=== PATIENT | female | born 1955 | race Caucasian/White ===

== ENCOUNTER 2020-01-22 18:40 | Emergency (ER) | payer OTHER, SELFPAY ==
--- NOTE | ~2020-01-22 | CT_ITS ---
EXAMINATION: CT chest abdomen pelvis w con DATE: 01/22/2020 20:58 INDICATION: Left upper abdominal pain post fall TECHNIQUE: Computed tomography (CT) of the chest, abdomen, and pelvis was performed with 100 mL Omnip aque-350 intravenous contrast. Automated exposure control and iterative reconstruction technique were employed. The dose-length product was 1966.01 mGy-cm. COMPARISON: None FINDINGS: CHEST CT: Non to minimally displaced fractures at the anterior left third-eighth ribs. Mild discoid atelectasis in the bilateral lower lobes. No pneumonia, pulmonary edema, pleural effusion or pneumothorax. Heart size is normal. Atherosclerotic coronary artery calcifications. No pericardial effusion. Thoracic ao rta is normal in caliber with no dissection or acute traumatic aortic injury. Calcified left hilar ly mph nodes consistent with old granulomatous disease. Mild thoracic dextrocurvature with severe spondy losis. Moderate left and severe right glenohumeral osteoarthritis. Intramedullary sclerotic lesion at the proximal left humeral diaphysis which could represent an enchondroma or bone infarct. ABDOMEN/PELVIS CT: Liver, gallbladder, pancreas, bilateral adrenal glands and kidneys are normal. Couple small splenic c alcification consistent with old granulomatous disease. Suture line along the tip of the cecum likely related to prior appendectomy. Bowels are otherwise unremarkable with no wall thickening or obstruct ion. Bladder, anteverted uterus and bilateral adnexa are unremarkable. No free intraperitoneal gas or fluid. No pathologically enlarged abdominal or pelvic lymphadenopathy. Couple small fat-containing i nfraumbilical ventral hernias. Severe lower lumbar facet osteoarthritis with grade 1 anterolisthesis L4 on L5. IMPRESSION: 1. Non to minimally displaced anterior left third-eighth rib fractures. No pneumothorax or other acut e cardiopulmonary disease. 2. No acute intra-abdominal/pelvic process. Reviewed, dictated and finalized at location A. IMPRESSION: 1. Non to minimally displaced anterior left third-eighth rib fractures. No pneu mothorax or other acute cardiopulmonary disease. 2. No acute intra-abdominal/pelvic process.
--- NOTE | ~2020-01-22 | XR_ITS ---
EXAMINATION: [id number] DATE: 01/22/2020 19:12 INDICATION: Anterior mid to lower left rib pain post fall TECHNIQUE: A frontal inspiratory view of the chest and 3 views of the left ribs were obtained. COMPARISON: Chest radiograph dated 01/14/2018 FINDINGS: Multiple anterior rib fractures, minimally displaced at the left third and fourth ribs and nondisplac ed at the left fifth and sixth ribs. No focal airspace opacities, pulmonary edema, pleural effusion o r pneumothorax. Heart size is normal with prominent bilateral paracardial fat pads. Mild thoracic dex troscoliosis with severe spondylosis. Sclerotic intramedullary lesion at the proximal left humeral di aphysis which could represent either an enchondroma or bone infarct. Moderate bilateral glenohumeral osteoarthritis. IMPRESSION: 1. Non to minimally displaced anterior left third-sixth rib fractures. 2. No acute cardiopulmonary disease. Reviewed, dictated and finalized at location A.
[2020-01-22 18:40] VITALS: BP 148/91; PULSE 73; RESP 20; TEMP 37.1; O2SAT 98
--- NOTE | 2020-01-22 18:55 | ED.GENADULT ---
HPI - General Adult General Chief complaint: Fall Stated complaint: FALL, Time Seen by Provider: 01/22/20 18:42 History of Present Illness HPI narrative: Patient is a 64 y/o female complaining of left sided chest pain and upper abdominal pain after she fell at home approximately 30 minute ago. She states that she struck tile floor covered with a thin rug. She denies hitting her head or passing out. She rates her pain as 9/10 and it radiates to her back. Her pain is a like a pressure. There is no alleviating or exacerbating factor. She also has some SOB. Related Data Home Medications Medication Instructions Recorded Confirmed acidophilus-pectin, citrus cap PO 01/22/20 [Acidophilus Probiotic] atorvastatin 10 mg PO HS 01/22/20 biotin 10,000 mcg PO DAILY 01/22/20 cholecalciferol (vitamin D3) 125 mcg PO DAILY 01/22/20 01/22/20 [Vitamin D3] diclofenac sodium 75 mg PO BID 01/22/20 fluoxetine 20 mg PO DAILY 01/22/20 furosemide 20 mg PO BID 01/22/20 losartan 50 mg PO DAILY 01/22/20 oxybutynin chloride 5 mg PO TID 01/22/20 oxycodone 7.5 mg PO BID 01/22/20 potassium chloride 10 meq PO DAILY 01/22/20 Allergies Allergy/AdvReac Type Severity Reaction Status Date / Time No Known Allergies Allergy Verified 01/22/20 18:48 Review of Systems Constitutional: Constitutional: Denies chills, Denies fever(s), Denies headache(s) and Denies weakness Eyes: Eyes: Denies blurry vision ENT: Denies headache(s) and Denies neck pain Cardiovascular: Cardiovascular: Reports chest pain and Denies dyspnea Respiratory: Respiratory: Denies cough, Reports dyspnea and Reports other (chest wall pain) Gastrointestinal: Gastrointestinal: Denies abdominal pain, Denies diarrhea, Denies nausea and Denies vomiting Genitourinary: Genitourinary: Denies hematuria and Denies dysuria Musculoskeletal: Musculoskeletal: Denies back pain and Denies neck pain Neurologic: Denies headache(s) and Denies weakness [facility] Past Medical History Medical History (Updated 01/24/20 @ 16:58 by Lalitha Grace MD) COPD (chronic obstructive pulmonary disease) Social History Social History Alcohol intake: current Exam Const: General: no acute distress and well developed Orientation/consciousness: oriented to person, oriented to place, oriented to time and patient oriented x3 HENMT: Head: normocephalic Ears: external ears normal General nose exam: Normal external nose present Eyes: General: appearance normal, both eyes and all related structures Conjunctivae: conjunctivae normal Neck: Neck: normal visual inspection and full ROM Chest: Chest palpation & inspection: normal inspection of the chest and no tenderness Resp: Effort & Inspection: normal respiratory effort Auscultation: clear to auscultation bilaterally Other: left chest wall palpation Cardio: Rate: regular rate Rhythm: regular rhythm GI: GI Palp: Yes abdominal tenderness (left upper quadrant) and Yes Soft to palpation Skin: General skin exam: normal color and turgor normal Neuro: General: oriented to person, oriented to place, oriented to time and patient oriented x3 Cognition (Neuro): normal cognition Extrem: General: normal to inspection, full ROM and no pedal edema Psych: Appearance: grossly normal Mental Status: mental status grossly normal Affect: normal affect Course Reevaluation(s) Reevaluation #1: Rechecked. Patient feels better and feels comfortable with going home. She states that she has oxycondone at home she can take. Date: 01/22/20 Time: 21:40 Vital Signs Vital signs: Vital Signs Temperature 37.1 C 01/22/20 18:40 Pulse Rate 73 01/22/20 18:40 Respiratory Rate 20 01/22/20 18:40 Blood Pressure 148/91 H 01/22/20 18:40 Pulse Oximetry 98 01/22/20 18:40 Temperature 36.9 C 01/22/20 21:55 Pulse Rate 78 01/22/20 21:55 Respiratory Rate 16 01/22/20 21:55 Blood Pressure 148/78 H 01/21
--- NOTE | 2020-01-22 19:02 | ECG_ITS ---
Measurements Intervals [place] Rate: 77 P: 0 IA: 134 QRS: 2 QRSD: 78 T: 30 QT: 365 QTc: 414 Interpretive Statements SINUS RHYTHM LOW QRS VOLTAGE IN PRECORDIAL LEADS BORDERLINE R WAVE PROGRESSION, ANTERIOR LEADS BASELINE ARTIFACT- I, II, III, AVF, V1 BORDERLINE ECG Electronically Signed On 01-23-2020 6:55:11 CDT by Baltazar Bernal D.O.
[2020-01-22 19:28] LABS: Basophils Absolute Auto 0.1 K/mm3 (0.0-0.1); Basophils Percent Auto 0.5 % (0.2-1.2); Eosinophils Absolute Auto 0.2 K/mm3 (0-0.3); Eosinophils Percent Auto 1.5 % (0-4.4); Hematocrit 45.1 % (37.0-47.0); Hemoglobin 14.7 g/dL (12.0-15.0); Immature Granulocyte Percent A 0.8 % (0-0.5); Lymphocytes Absolute Auto 2.19 K/mm3 (0.9-3.2); Lymphocytes Percent Auto 17.2 % (18.3-44.2); Mean Corpuscular HGB Conc 32.6 g/dl (32-36); Mean Corpuscular Hemoglobin 30.8 pg (26-34); Mean Corpuscular Volume 94.4 fl (80-100); Mean Platelet Volume 10.8 fl (7.4-10.4); Monocytes Absolute Auto 0.9 K/mm3 (0.1-0.6); Neutrophils Absolute Auto 9.3 K/mm3 (1.3-6.7); Platelet Count Result 279 k/mm3 (150-375); Red Blood Count 4.78 M/mm3 (4.2-5.4); White Blood Count 12.8 K/mm3 (4.5-10.0)
[2020-01-22 19:39] LABS: Alanine Aminotransferase 21 U/L (4-35); Albumin Level 4.4 g/dL (3.5-5.1); Alkaline Phosphatase 80 U/L (38-126); Aspartate Amino Transferase 27 U/L (14-36); Bilirubin,Total 0.4 mg/dL (0.2-1.3); Blood Urea Nitrogen 15 mg/dL (7-17); Calcium 9.6 mg/dL (8.4-10.2); Carbon Dioxide 26 mmol/L (22-30); Chloride 102 mmol/L (98-107); Estimated CRCL calculation 99 ml/min; Estimated Glomerular Filt Rate > 60; Glucose 112 mg/dL (65-105); Potassium 4.4 mmol/L (3.4-5.0); Sodium 138 mmol/L (137-145)
[2020-01-22 20:09] LABS: Add Urine Microscopic? YES; Appearance Urine Clear (Clear); Bilirubin Urine Negative (Negative); Blood Urine Negative (Negative); Color Urine Yellow (Yellow); Glucose Urine UA Negative (Negative); Ketones Urine Negative (Negative); Leukocyte Esterase Ur 1+ LEU/UL (Negative); Mucus Urine Rare /lpf; Nitrate Urine Negative (Negative); Protein Urine Negative (Negative); Specific Grav Ur 1.016 (1.001-1.035); Squamous Epithelial Cell Urine Occasional /hpf (Few); Urobilinogen Urine Negative mg/dL (<2.0)
[2020-01-22] MEDS: KETOROLAC 30 MG/ML VIAL (*BKC) IV PUSH (20:09)
[2020-01-22 20:11] VITALS: BP 163/99; PULSE 74; RESP 16; TEMP 36.6; O2SAT 97
[2020-01-22 21:04] VITALS: BP 178/79; PULSE 88; RESP 19; O2SAT 99
[2020-01-22 21:55] VITALS: BP 148/78; PULSE 78; RESP 16; TEMP 36.9; O2SAT 94
[2020-01-22] MEDS: MORPHINE SULFATE 4 MG/ML INJ IV PUSH (22:00)
== END 2020-01-22 22:12 | disposition home or self-care (01) ==
PROVIDERS: Emergency Provider Emergency Medicine; PCP Family Medicine Adolescent Medicine
DX: S22.42XA Multiple fractures of ribs, left side, initial encounter for closed fracture (principal); J44.9 Chronic obstructive pulmonary disease, unspecified; R94.31 Abnormal electrocardiogram [ECG] [EKG]; R82.998 Other abnormal findings in urine; W01.0XXA Fall on same level from slipping, tripping and stumbling without subsequent striking against object, initial encounter
CPT/HCPCS: 36415; 71101; 71260; 74177; 80053; 81001; 85025; 87086; 87088; 93005; 96374; 96375; 99284; J1885; J2270; Q9967

== ENCOUNTER 2020-03-11 19:44 | Inpatient (IN) | payer OTHER, SELFPAY ==
[2020-03-11] VITALS (7 sets, daily range): BP systolic 137–147; BP diastolic 71–97; PULSE 93–107; RESP 17–24; TEMP 38.3–38.7; O2SAT 81–96; BMI 56.5
--- NOTE | ~2020-03-11 | XR_ITS ---
EXAMINATION: XR chest 1V portable EXAM DATE: 03/11/2020 20:25 INDICATION: COVID 19. TECHNIQUE: Portable AP frontal chest x-ray was obtained. Comparison is made to prior examination from 01/14/2018. FINDINGS: There is moderate amount of bilateral ill-defined airspace disease consistent with acute geri ng injury, COVID 19. No pneumothorax or pleural effusion. The cardiomediastinal silhouette is promine nt but magnified on this AP technique. Cardiac silhouette is stable in size compared to prior exam. T here are no osseous abnormalities identified. IMPRESSION: Moderate amount of bilateral acute airspace disease; clinical correlation. Reviewed, dictated and finalized at location A. IMPRESSION: Moderate amount of bilateral acute airspace disease; clinical corre lation.
--- NOTE | ~2020-03-11 | XR_ITS ---
XR chest 1V portable DATE: 03/15/2020 06:28 INDICATION: Covid 19 pneumonia TECHNIQUE: Portable upright AP chest on 03/15/2020 at 0519 hours COMPARISON: 03/11/2020 portable AP chest FINDINGS: There are persistent extensive bilateral patchy consolidating infiltrates with increased in filtrates in both upper lung zones compared to 03/11/2020. Heart size appears normal. There is minimal if any pleural effusion. No pneumothorax. IMPRESSION: Extensive bilateral pulmonary infiltrates, increased since 03/11/2020 Reviewed, dictated and finalized at location A.
--- NOTE | ~2020-03-11 | XR_ITS ---
EXAMINATION: XR chest 1V portable DATE: 03/17/2020 08:05 INDICATION: COVID 19 pneumonia TECHNIQUE: frontal view of the chest was obtained. COMPARISON: Chest radiograph dated 03/15/2020 FINDINGS: No interval change in diffuse patchy airspace opacities throughout both lungs. No pleural effusion or pneumothorax. The cardiomediastinal silhouette is normal. IMPRESSION: 1. Unchanged diffuse bilateral lung disease consistent with pneumonia. Reviewed, dictated and finalized at location A.
--- NOTE | 2020-03-11 19:59 | ECG_ITS ---
Measurements Intervals [place] Rate: 103 P: -13 FL: 148 QRS: -15 QRSD: 70 T: 37 QT: 309 QTc: 406 Interpretive Statements SINUS TACHYCARDIA LOW QRS VOLTAGE IN PRECORDIAL LEADS DELAYED PRECORDIAL R/S TRANSITION BASELINE ARTIFACT- I, II, III, AVR, AVL, AVF, V1 ABNORMAL ECG Electronically Signed On 03-12-2020 6:46:39 CDT by Baltazar Bernal D.O.
--- NOTE | 2020-03-11 20:11 | ED.SOB ---
HPI - SOB/Dyspnea General Chief Complaint: Shortness of Breath/Dyspnea Stated Complaint: covid +/can't breathe Time Seen by Provider: 03/11/20 20:01 History of Present Illness HPI Narrative: Patient is a known COVID patient presenting with increasing shortness of breath. She has had a fever of 102 203 for 4 days now. She can no longer taste. Her only pain is her chronic knee pain. She has a history of asthma. She is retired. All of her surgeries have been here. MD elicited complaint: shortness of breath and cough Pertinent past history: asthma Onset (ago): day(s) Context: recent illness Timing: constant Severity: moderate Exacerbating factors: nothing Relieving factors: nothing Known history of: asthma Associated symptoms: fever, cough and lower extremity pain Treatment prior to arrival: none Related Data Home oxygen amount: none Home Medications Medication Instructions Recorded Confirmed acidophilus-pectin, citrus cap PO 01/22/20 [Acidophilus Probiotic] atorvastatin 10 mg PO HS 01/22/20 biotin 10,000 mcg PO DAILY 01/22/20 cholecalciferol (vitamin D3) 125 mcg PO DAILY 01/22/20 01/22/20 [Vitamin D3] diclofenac sodium 75 mg PO BID 01/22/20 fluoxetine 20 mg PO DAILY 01/22/20 furosemide 20 mg PO BID 01/22/20 losartan 50 mg PO DAILY 01/22/20 oxybutynin chloride 5 mg PO TID 01/22/20 oxycodone 7.5 mg PO BID 01/22/20 potassium chloride 10 meq PO DAILY 01/22/20 albuterol sulfate INHALATION 03/11/20 alprazolam 0.25 mg PO BID PRN 03/11/20 [id number] INHALATION 03/11/20 [Trelegy Ellipta] Allergies Allergy/AdvReac Type Severity Reaction Status Date / Time No Known Allergies Allergy Verified 03/11/20 20:28 Review of Systems Review of Systems: Narrative: CONSTITUTIONAL: She has fever, chills, and sweats. EYES: Denies visual changes, redness, or discharge. ENT: Denies rhinorrhea, congestion, sore throat, or otalgia. CARDIOVASCULAR: Denies chest pain, palpitations, or edema. RESPIRATORY: She has cough and dyspnea. GASTROINTESTINAL: Denies abdominal pain, nausea, vomiting, or diarrhea. GENITOURINARY: Denies dysuria or hematuria. SKIN: Denies rash or itching. MUSCULOSKELETAL: Denies back pain, joint pain, or myalgia. NEUROLOGIC: Denies headache, numbness, or weakness. PSYCHIATRIC: Denies anxiety or depression. All systems reviewed & are unremarkable except as noted in HPI and below PMFSH Past Medical History Medical History (Updated 03/11/20 @ 21:13 by Mary Hayden MD) COPD (chronic obstructive pulmonary disease) COVID-19 Morbid obesity Social History Social History (Updated 03/11/20 @ 20:14 by Mary Hayden MD) Smoking status: Never smoker Alcohol intake: current Substance use: never Exam Narrative: Exam Narrative: GENERAL: Well-appearing, well-nourished, and in no acute distress. Morbid obesity. Oxygen saturation 93% on 5 L. HEAD: Normocephalic, atraumatic. EYES: PERRLA and EOMI. ENT: Nares clear, no rhinorrhea or epistaxis. Mucous membranes moist. NECK: Supple. CHEST: Clear to auscultation. No respiratory distress. HEART: Regular rate and rhythm. No murmur heard. Normal peripheral pulses. ABDOMEN: Soft, nontender, nondistended, normal active bowel sounds. EXTREMITIES: Normal range of motion. No edema. SKIN: Warm, dry, no rash. NEURO: No focal deficits. Alert and oriented x3. PSYCH: Normal mood and affect. Const: General: no acute distress and alert Orientation/consciousness: patient oriented x3 Course Consultations Consultation #1: Call Dr. Toure for admission. She requests dexamethasone 6 mg IV, regular antibiotics for pneumonia, inpatient admission, on [facility] floor. Date: 03/11/20 Time: 20:47 Vital Signs Vital signs: Vital Signs Temperature 100.9 F H 03/11/20 19:55 Pulse Rate 107 H 03/11/20 19:55 Respiratory Rate 24 H 03/11/20 19:55 Blood Pressure 137/85 03/11/20 19:55 Pulse Oximetry 81 L 03/11/20 19:55 Temperature 10
[2020-03-11 20:24] LABS: Basophils Percent Auto 0.3 % (0.2-1.2); Eosinophils Absolute Auto 0.2 K/mm3 (0-0.3); Eosinophils Percent Auto 3.2 % (0-4.4); Hematocrit 44.8 % (37.0-47.0); Hemoglobin 14.5 g/dL (12.0-15.0); Immature Granulocyte Absolute 0.05 K/mm3 (0.00-0.031); Immature Granulocyte Percent A 0.8 % (0-0.5); Lymphocytes Absolute Auto 0.99 K/mm3 (0.9-3.2); Lymphocytes Percent Auto 15.8 % (18.3-44.2); Mean Corpuscular HGB Conc 32.4 g/dl (32-36); Mean Corpuscular Hemoglobin 30.1 pg (26-34); Mean Corpuscular Volume 92.9 fl (80-100); Monocytes Absolute Auto 0.4 K/mm3 (0.1-0.6); Monocytes Percent Auto 5.8 % (2.6-8.5); Neutrophils Absolute Auto 4.6 K/mm3 (1.3-6.7); Neutrophils Percent Auto 74.1 % (45.5-73.1); Platelet Count Result 183 k/mm3 (150-375); Red Blood Count 4.82 M/mm3 (4.2-5.4); Red Cell Distribution Width 13.7 % (11.5-14.5); White Blood Count 6.3 K/mm3 (4.5-10.0)
[2020-03-11] MEDS: ACETAMINOPHEN 325 MG TABLET 650 MG PO (20:24)
--- NOTE | 2020-03-11 20:25 | PC.NURSE ---
per erp dr reynoso, no longer requires aspirin
[2020-03-11 20:36] LABS: Blood Urea Nitrogen 10 mg/dL (7-17); Calcium 8.3 mg/dL (8.4-10.2); Carbon Dioxide 30 mmol/L (22-30); Chloride 101 mmol/L (98-107); Estimated CRCL calculation 113 ml/min; Estimated Glomerular Filt Rate > 60; Glucose 98 mg/dL (65-105); Sodium 137 mmol/L (137-145)
[2020-03-11 20:48] LABS: Troponin I < 0.012 ng/mL (0.000-0.034)
[2020-03-11 20:51] LABS: Partial Thromboplastin Time 30.8 SECONDS (22.3-36.8)
[2020-03-11 20:55] LABS: Prothrombin Time 12.8 Seconds (11.1-14.7)
[2020-03-11 21:02] LABS: NT Pro B Type Natriuretic Pept 81 PG/ML (5-100)
[2020-03-11 21:44] LABS: Lactic Acid 0.8 mmol/L (0.7-2.1)
[2020-03-11] MEDS: ONDANSETRON INJ 4 MG/2 ML VIAL IV PUSH (22:00)
--- NOTE | 2020-03-11 22:00 | PC.NURSE ---
PER ERP DR WOMACK, ZOFRAN 4MG IV PUSH... SEVERE WARNING BETWEEN ZOFRAN AND AZITHROMYCIN OK TO GIVE .
--- NOTE | 2020-03-11 23:30 | ADMGEN ---
This patient, Alissa Hoffmann, was admitted to [facility] Surg Room 328-01. Patient/family oriented to hospital policies and general routines including ID bracelet, bed and alarms, visiting hours, pain management, procedures, bathroom and other care routines, personal items, smoking policy, room service/diet, and visiting hours. Valuables list has been completed. Information on how to activate the Rapid Response Team has been discussed. Patient/Family are encouraged to report perceived risks to care and to ask questions if they do not understand what they are told or what they should do.
[2020-03-12] VITALS (11 sets, daily range): BP systolic 119–145; BP diastolic 54–97; PULSE 76–87; RESP 18–24; TEMP 36.7–37.6; O2SAT 88–94
[2020-03-12 01:08] LABS: Troponin I < 0.012 ng/mL (0.000-0.034)
[2020-03-12 03:11] LABS: Troponin I < 0.012 ng/mL (0.000-0.034)
[2020-03-12 09:46] LABS: CRP 5.5 mg/dL (<1.0); Lactate Dehydrogenase 851 U/L (313-618)
[2020-03-12] MEDS: LOSARTAN POTASSIUM 50 MG TABLET PO (10:37)
[2020-03-12] MEDS: POTASSIUM CHLORIDE 10 MEQ TABLET.ER PO (10:37)
[2020-03-12] MEDS: OXYBUTYNIN CHLORIDE 5 MG TABLET PO ×3 (10:37→20:33)
[2020-03-12] MEDS: FUROSEMIDE 20 MG TABLET PO (10:37)
[2020-03-12] MEDS: FLUoxetine HCL 20 MG CAPSULE PO (10:37)
[2020-03-12] MEDS: DICLOFENAC SOD 75 MG TABLET.EC PO ×2 (10:38→17:48)
--- NOTE | 2020-03-12 15:31 | PM.DS ---
DS: Summary Time Spent with Patient Time attestation: Total time spent providing and/or coordinating discharge services: DS: Data Data Completed and Pending Labs on day of discharge: Labs from last 24 hours 03/12/20 03/12/20 03/12/20 09:18 09:18 02:06 WBC RBC Hgb Hct MCV MCH MCHC RDW Plt Count MPV Immature Gran % (Auto) Neut % (Auto) Lymph % (Auto) Page % (Auto) Eos % (Auto) Baso % (Auto) Lymph # (Auto) Page # (Auto) Eos # (Auto) Baso # (Auto) Abs Immat Gran (auto) Absolute Neuts (auto) Absolute Nucleated RBC Nucleated RBC % PT INR APTT Sodium Potassium Chloride Carbon Dioxide Anion Gap BUN Creatinine Estim Creat Clear Calc Estimated GFR Glucose Lactic Acid Calcium Ferritin 156.00 Lactate Dehydrogenase 851 H Troponin I < 0.012 C-Reactive Protein 5.5 H NT-Pro-B Natriuret Pep 03/12/20 03/11/20 03/11/20 00:32 21:26 20:36 WBC RBC Hgb Hct MCV MCH MCHC RDW Plt Count MPV Immature Gran % (Auto) Neut % (Auto) Lymph % (Auto) Page % (Auto) Eos % (Auto) Baso % (Auto) Lymph # (Auto) Page # (Auto) Eos # (Auto) Baso # (Auto) Abs Immat Gran (auto) Absolute Neuts (auto) Absolute Nucleated RBC Nucleated RBC % PT INR APTT Sodium Potassium Chloride Carbon Dioxide Anion Gap BUN Creatinine Estim Creat Clear Calc Estimated GFR Glucose Lactic Acid 0.8 Calcium Ferritin Lactate Dehydrogenase Troponin I < 0.012 C-Reactive Protein NT-Pro-B Natriuret Pep 81 03/11/20 03/11/20 03/11/20 20:36 20:17 20:17 WBC 6.3 RBC 4.82 Hgb 14.5 Hct 44.8 MCV 92.9 MCH 30.1 MCHC 32.4 RDW 13.7 Plt Count 183 MPV 11.0 H Immature Gran % (Auto) 0.8 H Neut % (Auto) 74.1 H Lymph % (Auto) 15.8 L Page % (Auto) 5.8 Eos % (Auto) 3.2 Baso % (Auto) 0.3 Lymph # (Auto) 0.99 Page # (Auto) 0.4 Eos # (Auto) 0.2 Baso # (Auto) 0.0 Abs Immat Gran (auto) 0.05 H Absolute Neuts (auto) 4.6 Absolute Nucleated RBC 0.0 Nucleated RBC % 0.0 PT 12.8 INR 1.0 APTT 30.8 Sodium 137 Potassium 4.0 Chloride 101 Carbon Dioxide 30 Anion Gap 10.0 BUN 10 D Creatinine 0.60 L Estim Creat Clear Calc 113 Estimated GFR > 60 Glucose 98 Lactic Acid Calcium 8.3 L Ferritin Lactate Dehydrogenase Troponin I < 0.012 C-Reactive Protein NT-Pro-B Natriuret Pep Discharge Plan Discharge Patient Instructions: Hypoxia (GEN), Pneumonia (DC), COVID-19 (Coronavirus Disease 2019) (GEN), Face Coverings (Masks) and COVID-19 (GEN) Discharge Medications: No Action losartan 50 mg Tablet 50 mg PO DAILY RF: 0 atorvastatin 10 mg Tablet 10 mg PO HS RF: 0 potassium chloride 10 mEq Tablet Extended Release 10 meq PO DAILY RF: 0 diclofenac sodium 75 mg Tablet,Delayed Release (Dr/Ec) 75 mg PO BID RF: 0 furosemide 20 mg Tablet 20 mg PO DAILY RF: 0 oxybutynin chloride 5 mg Tablet 5 mg PO TID RF: 0 fluoxetine 20 mg Capsule 20 mg PO DAILY RF: 0 cholecalciferol (vitamin D3) [Vitamin D3] 125 mcg (5,000 unit) Tablet 125 mcg PO DAILY RF: 0 acidophilus-pectin, citrus [Acidophilus Probiotic] 100 million cell-10 mg Capsule 2 cap PO DAILY RF: 0 alprazolam 0.5 mg tablet 0.5 mg PO DAILY PRN (Reason: Anxiety) RF: 0 oxycodone-acetaminophen 7.5-325 mg tablet 7.5 tablet PO TID PRN (Reason: Pain) RF: 0 Trelegy Ellipta 100-62.5-25 mcg Blister With Device 1 inh INHALATION DAILY RF: 0 Date of admission: 03/11/20 21:13 Primary Care Provider: Bishop Lopez Admitting Provider: Adal Toure Attending physician on admission: Simran Mcnulty Condition: Stable
--- NOTE | 2020-03-12 15:31 | PM.IMHP ---
H&P: HPI History of Present Illness Date/Time: 03/12/20 15:31 Chief complaint: COVID, pneumonia Narrative: Alissa Hoffmann is a 65 year old female with a past medical history of hypertension and known recent COVID-19 infection who presented emergency room for worsening shortness of breath. Patient states that she was not feeling great Wednesday and got tested for COVID on Wednesday and was positive. Since then she is having more shortness of breath, cough and dyspnea on exertion. She says she has been mostly staying home but went out for her son's birthday 1 time at a restaurant and now the whole family now has symptoms. She has been having some nausea but overall doing better. She can still not taste very much. She has some chest pain that is associated with deep breaths. She denies vomiting, fevers, chills, leg swelling, diarrhea or constipation at this time. we had an extensive discussion about treatment for COVID-19 and the benefit versus side effects of Remdesivir Review of Systems Review of Systems: All systems reviewed & are unremarkable except as noted in HPI and below PMFSH Past Medical History Medical History (Updated 03/12/20 @ 17:24 by Simran Mcnulty PA-C) COPD (chronic obstructive pulmonary disease) COVID-19 HTN (hypertension), benign Morbid obesity Surgical History Surgical History (Updated 03/12/20 @ 17:25 by Simran Mcnulty PA-C) History of appendectomy History of tonsillectomy Family History Family History (Updated 03/11/20 @ 23:56 by Radha Gabriel RN) Mother Diabetes mellitus Son Muscular dystrophy Social History Social History (Updated 03/12/20 @ 17:25 by Simran Mcnulty PA-C) Social History: patient quit smoking when she was 38 and has not smoked since. She does not drink alcohol, smoke marijuana or do other street drugs. She would like to appoint her son Anshul as her surrogate decision maker. She would like to be full code. Smoking packs per day: 2.5 Smoking cigarettes per day: 50.0 Years smoked: 20 Smoking pack-years: 50.00 Smoking status: Former smoker Tobacco type: cigarettes Alcohol intake: former Drinks per week: 1 Substance use: never Gender identity (if verbalized by the patient): Female Sexual Orientation (if Verbalized by the Patient): Straight or Heterosexual Spiritual care concerns: No Meds Home Medications and Allergies Home Medications Medication Instructions Recorded Confirmed Type acidophilus-pectin, citrus 2 cap PO DAILY 01/22/20 03/12/20 History [Acidophilus Probiotic] atorvastatin 10 mg PO HS 01/22/20 03/12/20 History cholecalciferol (vitamin D3) 125 mcg PO DAILY 01/22/20 03/12/20 History [Vitamin D3] diclofenac sodium 75 mg PO BID 01/22/20 03/12/20 History fluoxetine 20 mg PO DAILY 01/22/20 03/12/20 History furosemide 20 mg PO DAILY 01/22/20 03/12/20 History losartan 50 mg PO DAILY 01/22/20 03/12/20 History oxybutynin chloride 5 mg PO TID 01/22/20 03/12/20 History potassium chloride 10 meq PO DAILY 01/22/20 03/12/20 History alprazolam 0.5 mg PO DAILY PRN 03/12/20 03/12/20 History [id number]-[id number] 1 inh INHALATION DAILY 03/12/20 03/12/20 History [Trelegy Ellipta] oxycodone-acetaminophen 7.5 tablet PO TID PRN 03/12/20 03/12/20 History Allergies Allergy/AdvReac Type Severity Reaction Status Date / Time No Known Allergies Allergy Verified 03/11/20 20:28 Vital Signs Vital Signs - 24 hr 03/11/20 19:55 03/11/20 20:05 03/11/20 20:26 Temperature 100.9 F H Pulse Rate 107 H 106 H Respiratory Rate 24 H 17 Blood Pressure 137/85 147/97 H Pulse Oximetry 81 L 93 96 03/11/20 21:24 03/11/20 22:45 03/11/20 23:08 Temperature Pulse Rate 106 H 106 H 106 H Respiratory Rate 17 17 17 Blood Pressure 147/97 H 147/97 H 147/97 H Pulse Oximetry 94 94 96 03/11/20 23:30 03/12/20 02:00 03/12/20 04:28 Temperature 101.6 F H 99.7 F H Pulse Rate 93 84 Respiratory Rate 24
[2020-03-12] MEDS: REMDESIVIR 200 MG/NS 250 ML 200 MG/250 ML BAG 250 MG IVPB (17:47)
[2020-03-12] MEDS: ENOXAPARIN 40 MG/0.4 ML SYRINGE SUB-Q (17:47)
[2020-03-12] MEDS: ACETAMINOPHEN 325 MG TABLET 650 MG PO (17:52)
[2020-03-12] MEDS: ATORVASTATIN 10 MG TABLET PO (20:32)
[2020-03-12] MEDS: DEXAMETHASONE 2 MG TABLET 6 MG PO (20:32)
[2020-03-12] MEDS: ALPRAZolam 0.5 MG TABLET PO (20:40)
[2020-03-13 02:00] VITALS: BP 147/77; PULSE 68; RESP 20; TEMP 36.5; O2SAT 93
[2020-03-13 06:00] VITALS: BP 151/77; PULSE 68; RESP 20; TEMP 36.6; O2SAT 93
[2020-03-13 06:05] LABS: Hematocrit 42.9 % (37.0-47.0); Hemoglobin 13.9 g/dL (12.0-15.0); Mean Corpuscular HGB Conc 32.4 g/dl (32-36); Mean Corpuscular Hemoglobin 29.8 pg (26-34); Mean Corpuscular Volume 92.1 fl (80-100); Mean Platelet Volume 11.1 fl (7.4-10.4); Platelet Count Result 208 k/mm3 (150-375); Red Blood Count 4.66 M/mm3 (4.2-5.4); Red Cell Distribution Width 13.3 % (11.5-14.5); White Blood Count 5.3 K/mm3 (4.5-10.0)
[2020-03-13 06:15] LABS: Alanine Aminotransferase 21 U/L (4-35)
[2020-03-13 06:25] LABS: Alanine Aminotransferase 22 U/L (4-35); Albumin Level 3.7 g/dL (3.5-5.1); Alkaline Phosphatase 52 U/L (38-126); Anion Gap 10.1 mmol/L (7-16); Aspartate Amino Transferase 44 U/L (14-36); Bilirubin,Total 0.1 mg/dL (0.2-1.3); Blood Urea Nitrogen 20 mg/dL (7-17); CRP 3.4 mg/dL (<1.0); Calcium 8.5 mg/dL (8.4-10.2); Carbon Dioxide 30 mmol/L (22-30); Chloride 103 mmol/L (98-107); Estimated CRCL calculation 113 ml/min; Estimated Glomerular Filt Rate > 60; Glucose 141 mg/dL (65-105); Lactate Dehydrogenase 872 U/L (313-618); Potassium 4.1 mmol/L (3.4-5.0); Sodium 139 mmol/L (137-145)
[2020-03-13 10:00] VITALS: BP 149/64; PULSE 68; RESP 20; TEMP 36.5; O2SAT 91; O2SAT 94
[2020-03-13] MEDS: ENOXAPARIN 40 MG/0.4 ML SYRINGE SUB-Q (10:30)
[2020-03-13] MEDS: LOSARTAN POTASSIUM 50 MG TABLET PO (10:30)
[2020-03-13] MEDS: OXYBUTYNIN CHLORIDE 5 MG TABLET PO ×2 (10:31→18:27)
[2020-03-13] MEDS: POTASSIUM CHLORIDE 10 MEQ TABLET.ER PO (10:31)
[2020-03-13] MEDS: FUROSEMIDE 20 MG TABLET PO (10:31)
[2020-03-13] MEDS: DICLOFENAC SOD 75 MG TABLET.EC PO ×2 (10:31→18:28)
[2020-03-13] MEDS: FLUoxetine HCL 20 MG CAPSULE PO (10:32)
--- NOTE | 2020-03-13 11:00 | PC.NURSE ---
Pt complaining of difficulty clearing secretions and difficulty catching breath. She mentioned that she had not used her PRN albuterol inhaler for a couple of days and felt it would help. I asked pt if she also had her trelegy with her. Spoke with Simran Mcnulty about adding on mucinex, albuterol PRN (pt typically uses it 3-4 times per day PRN SOB), and her trelegy.
--- NOTE | 2020-03-13 12:02 | PHAR ---
HOME MEDICATION VERIFIED BY PHARMACY: TRELEGY ELLIPTA INHALER 100 MCG/62.5 MCG
[2020-03-13] MEDS: ALBUTEROL SULFATE (*SP) AEROSOL 1 PUFF 2 PUFF INHALATION ×2 (13:27→18:43)
[2020-03-13] MEDS: ALBUTEROL SULFATE (*SP) INHALER 1 PUFF (13:27)
[2020-03-13 14:00] VITALS: BP 127/67; PULSE 72; RESP 22; TEMP 36.6; O2SAT 93
--- NOTE | 2020-03-13 14:55 | PM.IMPN ---
Progress Note: A&P Assessment and Plan (1) COVID-19: Code(s): U07.1 - COVID-19 Status: Acute Assessment and Plan: ----- Patient is feeling better and is still on 4 L of oxygen. Because of her increased oxygen need, Remdesivir and Decadron was started. I reviewed the risk and benefits of these medications. She agreed. Will continue O2 as tolerated and wean oxygen as able. her ferritin and liver functions are within normal limits. Troponins negative x3. She does have some pleuritic chest pain, no concern for ACS at this time. BNP normal. Will monitor closely. (2) Acute respiratory failure with hypoxia: Code(s): J96.01 - Acute respiratory failure with hypoxia Status: Acute Assessment and Plan: ----- Due to above. Continue oxygen and wean as tolerated (3) HTN (hypertension), benign: Code(s): I10 - Essential (primary) hypertension Status: Acute Assessment and Plan: ----- last blood pressure 127/67. Will continue Lasix and losartan (4) Pneumonia: Qualifiers: Laterality: bilateral Lung location: unspecified part of lung Pneumonia type: due to unspecified organism Qualified Code(s): J18.9 - Pneumonia, unspecified organism Code(s): J18.9 - Pneumonia, unspecified organism Status: Acute Assessment and Plan: ----- viral pneumonia suspected due to COVID-19. Please see plan of care above Time Spent With Patient Time with patient: 25 - 35 minutes Subjective Date/time seen: 03/13/20 14:55 Interval history: Pt is a 65-year-old male here for COVID-19 pneumonia. Patient was seen today and states she is feeling better compared to when she came in. She still having shortness of breath and is still coughing but it is a dry cough. She thinks oxygen has helped her. She is having some chest pain when she coughs that is pleuritic chest pain but does not have any when she is not coughing. She has not had a bowel movement since being here but thinks she will have 1 today. She agreed to a bowel regimen tomorrow if she has not had 1 then. She started to get her taste back and she is eating and drinking more than when she came in. Overall, she feels improved. Review of Systems Review of Systems: All systems reviewed & are unremarkable except as noted in HPI and below Exam Narrative: Exam Narrative: General: Obese patient resting comfortably in bed in no acute distress HEENT: Normocephalic, atraumatic, PERRL, Sclerae anicteric, oral mucosa moist. Neck: Supple Resp: 4 L of oxygen applied with nasal cannula. Overall good lung sounds. No wheezing Heart: RRR with no murmurs Abd: Soft, nontender. No pain to palpation. Positive bowel sounds Skin: Warm and dry Extremities: No swelling, erythema or pain to palpation Neuro: Alert and Oriented x4 . CN 2-12 intact. No focal neurological deficits. Objective Data Vital Signs Vital Signs: Vital Signs - 24 hr 03/12/20 17:57 03/12/20 18:00 03/12/20 20:00 Temperature 98.6 F Pulse Rate 76 Respiratory Rate 18 Blood Pressure 127/55 L Pulse Oximetry 93 93 94 03/12/20 22:00 03/13/20 02:00 03/13/20 06:00 Temperature 98.1 F 97.7 F 97.8 F Pulse Rate 87 68 68 Respiratory Rate 20 20 20 Blood Pressure 119/65 147/77 H 151/77 H Pulse Oximetry 94 93 93 03/13/20 10:00 03/13/20 14:00 Temperature 97.7 F 97.8 F Pulse Rate 68 72 Respiratory Rate 20 22 H Blood Pressure 149/64 H 127/67 Pulse Oximetry 94 93 Intake/Output Intake/Output: Intake & Output 03/10/20 03/11/20 03/12/20 03/13/20 23:59 23:59 23:59 23:59 Intake Total 300 1360 370 Output Total 1350 500 Balance 300 10 -130 Meds/Results Medications: Active Medications Generic Name Dose Route Start Last Admin Trade Name Freq PRN Reason Stop Dose Admin Acetaminophen 650 mg 03/11/20 21:13 03/12/20 17:52 Tylenol Tablet PO 650 mg Q4H PRN Administration Mild Pain (1-3) or Fever
[2020-03-13 18:00] VITALS: BP 100/52; PULSE 69; RESP 22; TEMP 36.4; O2SAT 92
[2020-03-13] MEDS: ALPRAZolam 0.5 MG TABLET PO (18:28)
[2020-03-13] MEDS: REMDESIVIR 100 MG/NS 250 ML 100 MG/250 ML BAG 250 MG IVPB (18:33)
[2020-03-13 20:00] VITALS: BP 163/83; PULSE 76; RESP 20; TEMP 36.8; O2SAT 91
[2020-03-13] MEDS: guaiFENesin 12 HR 600 MG TABCR PO (21:53)
[2020-03-13] MEDS: ATORVASTATIN 10 MG TABLET PO (21:53)
[2020-03-13] MEDS: DEXAMETHASONE 2 MG TABLET 6 MG PO (21:53)
[2020-03-14] VITALS (7 sets, daily range): BP systolic 121–155; BP diastolic 54–83; PULSE 60–72; RESP 18–24; TEMP 36.4–37; O2SAT 89–94
[2020-03-14] MEDS: SODIUM CHLORIDE NASAL GEL 14.1 GM 1 APPLIC NASAL (02:56)
[2020-03-14] MEDS: guaiFENesin 12 HR 600 MG TABCR PO ×2 (08:30→21:10)
[2020-03-14] MEDS: FLUoxetine HCL 20 MG CAPSULE PO (08:30)
[2020-03-14] MEDS: FUROSEMIDE 20 MG TABLET PO (08:30)
[2020-03-14] MEDS: POTASSIUM CHLORIDE 10 MEQ TABLET.ER PO (08:30)
[2020-03-14] MEDS: OXYBUTYNIN CHLORIDE 5 MG TABLET PO ×3 (08:31→17:00)
[2020-03-14] MEDS: DICLOFENAC SOD 75 MG TABLET.EC PO ×2 (08:31→17:00)
[2020-03-14] MEDS: LOSARTAN POTASSIUM 50 MG TABLET PO (08:31)
[2020-03-14] MEDS: ENOXAPARIN 40 MG/0.4 ML SYRINGE SUB-Q (08:31)
[2020-03-14 09:02] LABS: Alanine Aminotransferase 21 U/L (4-35); Albumin Level 3.4 g/dL (3.5-5.1); Alkaline Phosphatase 49 U/L (38-126); Anion Gap 11.2 mmol/L (7-16); Aspartate Amino Transferase 40 U/L (14-36); Bilirubin,Total 0.2 mg/dL (0.2-1.3); Blood Urea Nitrogen 23 mg/dL (7-17); CRP 1.8 mg/dL (<1.0); Calcium 8.5 mg/dL (8.4-10.2); Carbon Dioxide 30 mmol/L (22-30); Chloride 103 mmol/L (98-107); Estimated CRCL calculation 113 ml/min; Estimated Glomerular Filt Rate > 60; Glucose 130 mg/dL (65-105); Lactate Dehydrogenase 882 U/L (313-618); Potassium 4.2 mmol/L (3.4-5.0); Sodium 140 mmol/L (137-145)
[2020-03-14] MEDS: REMDESIVIR 100 MG/NS 250 ML 100 MG/250 ML BAG 250 MG IVPB (17:00)
--- NOTE | 2020-03-14 17:21 | PM.IMPN ---
Progress Note: A&P Assessment and Plan (1) COVID-19: Code(s): U07.1 - COVID-19 Status: Acute Assessment and Plan: ----- Patient continues to need 4 L of oxygen. Inflammatory markers stable. Will order chest x-ray for tomorrow morning. Because of her increased oxygen need, Remdesivir and Decadron was started. I reviewed the risk and benefits of these medications. She agreed. Will continue O2 as tolerated and wean oxygen as able. her ferritin and liver functions are within normal limits. Troponins negative x3. She does have some pleuritic chest pain, no concern for ACS at this time. BNP normal. Will monitor closely. (2) Acute respiratory failure with hypoxia: Code(s): J96.01 - Acute respiratory failure with hypoxia Status: Acute Assessment and Plan: ----- Due to above. Continue oxygen and wean as tolerated (3) HTN (hypertension), benign: Code(s): I10 - Essential (primary) hypertension Status: Acute Assessment and Plan: ----- last blood pressure 155/64. Will continue Lasix and losartan (4) Pneumonia: Qualifiers: Laterality: bilateral Lung location: unspecified part of lung Pneumonia type: due to unspecified organism Qualified Code(s): J18.9 - Pneumonia, unspecified organism Code(s): J18.9 - Pneumonia, unspecified organism Status: Acute Assessment and Plan: ----- viral pneumonia suspected due to COVID-19. Please see plan of care above Subjective Date/time seen: 03/14/20 17:21 Interval history: Pt is a 65-year-old male here for COVID-19 pneumonia. patient was seen today and is discouraged that she has not made any improvement. She still feels short of breath and is coughing. She feels short of breath when she walks to the bathroom. She is eating and drinking well. No chest pain. Exam Narrative: Exam Narrative: General: Obese patient resting comfortably in bed in no acute distress HEENT: Normocephalic, atraumatic, PERRL, Sclerae anicteric, oral mucosa moist. Neck: Supple Resp: 4 L of oxygen applied with nasal cannula. Overall good lung sounds. No wheezing Heart: RRR with no murmurs Abd: Soft, nontender. No pain to palpation. Positive bowel sounds Skin: Warm and dry Extremities: No swelling, erythema or pain to palpation Neuro: Alert and Oriented x4 . CN 2-12 intact. No focal neurological deficits. Objective Data Vital Signs Vital Signs: Vital Signs - 24 hr 03/13/20 18:00 03/13/20 20:00 03/14/20 00:00 Temperature 97.6 F 98.2 F 98.6 F Pulse Rate 69 76 72 Respiratory Rate 22 H 20 20 Blood Pressure 100/52 L 163/83 H 121/72 Pulse Oximetry 92 91 94 03/14/20 04:00 03/14/20 08:00 03/14/20 12:00 Temperature 97.9 F 97.8 F 98.4 F Pulse Rate 64 62 68 Respiratory Rate 20 18 24 H Blood Pressure 123/54 L 134/83 152/68 H Pulse Oximetry 93 92 89 L 03/14/20 16:00 Temperature 97.6 F Pulse Rate 61 Respiratory Rate 20 Blood Pressure 155/64 H Pulse Oximetry 92 Intake/Output Intake/Output: Intake & Output 03/11/20 03/12/20 03/13/20 03/14/20 23:59 23:59 23:59 23:59 Intake Total 300 1360 1160 1560 Output Total 1350 1000 1100 Balance 300 10 160 460 Meds/Results Medications: Active Medications Generic Name Dose Route Start Last Admin Trade Name Freq PRN Reason Stop Dose Admin Acetaminophen 650 mg 03/11/20 21:13 03/12/20 17:52 Tylenol Tablet PO 650 mg Q4H PRN Administration Mild Pain (1-3) or Fever Albuterol 2 puff 03/13/20 12:48 03/13/20 18:43 Proventil Hfa INHALATION 2 puff QIDRT PRN Administration Shortness Of Breath Alprazolam 0.5 mg 03/12/20 12:09 03/13/20 18:28 Xanax PO 0.5 mg DAILY PRN Administration Anxiety Atorvastatin Calcium 10 mg 03/12/20 21:00 03/13/20 21:53 Lipitor PO 10 mg HS RENE Administration Dexamethasone 6 mg 03/12/20 21:00 03/13/20 21:53 Dexamethasone Po PO 03/21/20 21:01 6 m
[2020-03-14] MEDS: MAGNESIUM HYDROXIDE SUSP 30 ML UDC PO (18:44)
[2020-03-14] MEDS: ATORVASTATIN 10 MG TABLET PO (21:10)
[2020-03-14] MEDS: DEXAMETHASONE 2 MG TABLET 6 MG PO (21:10)
[2020-03-15] VITALS (13 sets, daily range): BP systolic 110–146; BP diastolic 56–81; PULSE 60–66; RESP 16–22; TEMP 36.1–36.8; O2SAT 90–94
[2020-03-15 06:52] LABS: Alanine Aminotransferase 26 U/L (4-35); Albumin Level 3.4 g/dL (3.5-5.1); Alkaline Phosphatase 55 U/L (38-126); Aspartate Amino Transferase 41 U/L (14-36); Bilirubin,Total 0.2 mg/dL (0.2-1.3); CRP 1.1 mg/dL (<1.0); Lactate Dehydrogenase 880 U/L (313-618); Magnesium 2.5 mg/dL (1.6-2.3)
[2020-03-15] MEDS: ENOXAPARIN 40 MG/0.4 ML SYRINGE SUB-Q (09:20)
[2020-03-15] MEDS: POTASSIUM CHLORIDE 10 MEQ TABLET.ER PO (09:21)
[2020-03-15] MEDS: guaiFENesin 12 HR 600 MG TABCR PO ×2 (09:21→20:40)
[2020-03-15] MEDS: DICLOFENAC SOD 75 MG TABLET.EC PO ×2 (09:21→17:28)
[2020-03-15] MEDS: LOSARTAN POTASSIUM 50 MG TABLET PO (09:21)
[2020-03-15] MEDS: FUROSEMIDE 20 MG TABLET PO (09:21)
[2020-03-15] MEDS: OXYBUTYNIN CHLORIDE 5 MG TABLET PO ×3 (09:21→17:28)
[2020-03-15] MEDS: FLUoxetine HCL 20 MG CAPSULE PO (09:21)
[2020-03-15] MEDS: ALBUTEROL SULFATE (*SP) AEROSOL 1 PUFF 2 PUFF INHALATION ×3 (09:29→20:10)
--- NOTE | 2020-03-15 16:40 | PM.IMPN ---
Progress Note: A&P Assessment and Plan (1) COVID-19: Code(s): U07.1 - COVID-19 Status: Acute Assessment and Plan: ----- Patient now on 2L of o2. Inflammatory markers stable. CXR shows worsening but clinically stable. Continue Remdesivir and Decadron. Will continue O2 as tolerated and wean oxygen as able. her ferritin and liver functions are within normal limits. Troponins negative x3. She does have some pleuritic chest pain, no concern for ACS at this time. BNP normal. Will monitor closely. (2) Acute respiratory failure with hypoxia: Code(s): J96.01 - Acute respiratory failure with hypoxia Status: Acute Assessment and Plan: ----- Due to above. Continue oxygen and wean as tolerated (3) HTN (hypertension), benign: Code(s): I10 - Essential (primary) hypertension Status: Acute Assessment and Plan: ----- last blood pressure 110/72. Will continue Lasix and losartan (4) Pneumonia: Qualifiers: Laterality: bilateral Lung location: unspecified part of lung Pneumonia type: due to unspecified organism Qualified Code(s): J18.9 - Pneumonia, unspecified organism Code(s): J18.9 - Pneumonia, unspecified organism Status: Acute Assessment and Plan: ----- viral pneumonia suspected due to COVID-19. Please see plan of care above Subjective Date/time seen: 03/15/20 16:40 Interval history: Pt is a 65-year-old male here for COVID-19 pneumonia. Patient was seen today and is in good spirits. She is still having pleuretic right sided CP with coughing but no SOB at rest. She has a little FORD which has improved slightly. She had a BM today which was normal for her. She is eating and drinking well. Exam Narrative: Exam Narrative: General: Obese patient resting comfortably in bed in no acute distress HEENT: Normocephalic, atraumatic, PERRL, Sclerae anicteric, oral mucosa moist. Neck: Supple Resp: 2 L of oxygen applied with nasal cannula. Overall good lung sounds. No wheezing Heart: RRR with no murmurs Abd: Soft, non distended. No pain to palpation. Positive bowel sounds Skin: Warm and dry Extremities: No swelling, erythema or pain to palpation Neuro: Alert and Oriented x4 . CN 2-12 intact. No focal neurological deficits. Objective Data Vital Signs Vital Signs: Vital Signs - 24 hr 03/14/20 20:00 03/15/20 00:00 03/15/20 04:00 Temperature 97.8 F 97 F L 98 F Pulse Rate 60 60 63 Respiratory Rate 20 20 20 Blood Pressure 144/60 H 137/57 L 146/78 H Pulse Oximetry 92 94 90 03/15/20 09:00 03/15/20 09:30 03/15/20 13:00 Temperature 98.1 F 98.2 F Pulse Rate 61 64 Respiratory Rate 22 H 22 H Blood Pressure 146/69 H 110/72 Pulse Oximetry 93 93 91 Intake/Output Intake/Output: Intake & Output 03/12/20 03/13/20 03/14/20 03/15/20 23:59 23:59 23:59 23:59 Intake Total 1360 1160 2050 440 Output Total 1350 1000 1100 Balance 10 160 950 440 Meds/Results Medications: Active Medications Generic Name Dose Route Start Last Admin Trade Name Freq PRN Reason Stop Dose Admin Acetaminophen 650 mg 03/11/20 21:13 03/12/20 17:52 Tylenol Tablet PO 650 mg Q4H PRN Administration Mild Pain (1-3) or Fever Albuterol 2 puff 03/13/20 12:48 03/15/20 13:08 Proventil Hfa INHALATION 2 puff QIDRT PRN Administration Shortness Of Breath Alprazolam 0.5 mg 03/12/20 12:09 03/13/20 18:28 Xanax PO 0.5 mg DAILY PRN Administration Anxiety Atorvastatin Calcium 10 mg 03/12/20 21:00 03/14/20 21:10 Lipitor PO 10 mg HS RENE Administration Dexamethasone 6 mg 03/12/20 21:00 03/14/20 21:10 Dexamethasone Po PO 03/21/20 21:01 6 mg 2100 RENE Administration Diclofenac Sodium 75 mg 03/12/20 09:05 03/15/20 09:21 Voltaren Ec Tab PO 75 mg BIDWM RENE Administration Enoxaparin Sodium 40 mg 03/12/20 17:10 03/15/20 09:20 Lovenox SUB-Q 40 mg DAILY RENE Adminis
[2020-03-15] MEDS: REMDESIVIR 100 MG/NS 250 ML 100 MG/250 ML BAG 250 MG IVPB (17:28)
[2020-03-15] MEDS: ALPRAZolam 0.5 MG TABLET PO (20:39)
[2020-03-15] MEDS: ACETAMINOPHEN 325 MG TABLET 650 MG PO (20:39)
[2020-03-15] MEDS: SODIUM CHLORIDE NASAL GEL 14.1 GM 1 APPLIC NASAL (20:40)
[2020-03-15] MEDS: ATORVASTATIN 10 MG TABLET PO (20:40)
[2020-03-15] MEDS: DEXAMETHASONE 2 MG TABLET 6 MG PO (20:40)
[2020-03-16] VITALS (8 sets, daily range): BP systolic 122–164; BP diastolic 53–76; PULSE 61–78; RESP 20; TEMP 36.4–36.9; O2SAT 90–93
[2020-03-16 06:37] LABS: Hematocrit 40.8 % (37.0-47.0); Hemoglobin 13.3 g/dL (12.0-15.0); Mean Corpuscular HGB Conc 32.6 g/dl (32-36); Mean Corpuscular Hemoglobin 29.8 pg (26-34); Mean Corpuscular Volume 91.3 fl (80-100); Mean Platelet Volume 10.8 fl (7.4-10.4); Platelet Count Result 286 k/mm3 (150-375); Red Blood Count 4.47 M/mm3 (4.2-5.4); Red Cell Distribution Width 13.2 % (11.5-14.5); White Blood Count 8.4 K/mm3 (4.5-10.0)
[2020-03-16 06:51] LABS: Alanine Aminotransferase 28 U/L (4-35); Albumin Level 3.4 g/dL (3.5-5.1); Alkaline Phosphatase 53 U/L (38-126); Anion Gap 7 mmol/L (8-16); Aspartate Amino Transferase 33 U/L (14-36); Bilirubin,Total 0.3 mg/dL (0.2-1.3); Blood Urea Nitrogen 21 mg/dL (7-17); Calcium 8.5 mg/dL (8.4-10.2); Carbon Dioxide 27 mmol/L (22-30); Chloride 105 mmol/L (98-107); Estimated CRCL calculation 133 ml/min; Estimated Glomerular Filt Rate > 60; Glucose 142 mg/dL (65-105); Lactate Dehydrogenase 823 U/L (313-618); Potassium 4.5 mmol/L (3.4-5.0); Sodium 139 mmol/L (137-145)
[2020-03-16] MEDS: DICLOFENAC SOD 75 MG TABLET.EC PO ×2 (08:39→17:20)
[2020-03-16] MEDS: ENOXAPARIN 40 MG/0.4 ML SYRINGE SUB-Q (08:39)
[2020-03-16] MEDS: FLUoxetine HCL 20 MG CAPSULE PO (08:39)
[2020-03-16] MEDS: OXYBUTYNIN CHLORIDE 5 MG TABLET PO ×3 (08:39→17:20)
[2020-03-16] MEDS: FUROSEMIDE 20 MG TABLET PO (08:39)
[2020-03-16] MEDS: POTASSIUM CHLORIDE 10 MEQ TABLET.ER PO (08:39)
[2020-03-16] MEDS: guaiFENesin 12 HR 600 MG TABCR PO ×2 (08:39→21:29)
[2020-03-16] MEDS: LOSARTAN POTASSIUM 50 MG TABLET PO (08:39)
[2020-03-16] MEDS: ALBUTEROL SULFATE (*SP) AEROSOL 1 PUFF 2 PUFF INHALATION ×4 (09:22→21:04)
--- NOTE | 2020-03-16 16:17 | PM.IMPN ---
Progress Note: A&P Assessment and Plan (1) COVID-19: Code(s): U07.1 - COVID-19 Status: Acute Assessment and Plan: ----- Patient weened off o2 so far. If she doesn't require o2 overnight, will likely discharge tomorrow. Inflammatory markers stable. CXR shows worsening but clinically stable. Continue Decadron. Remdesivir complete. She does have some pleuritic chest pain, no concern for ACS at this time. BNP normal. Will monitor closely. (2) Acute respiratory failure with hypoxia: Code(s): J96.01 - Acute respiratory failure with hypoxia Status: Acute Assessment and Plan: ----- Resolved. (3) HTN (hypertension), benign: Code(s): I10 - Essential (primary) hypertension Status: Acute Assessment and Plan: ----- last blood pressure 129/53. Will continue Lasix and losartan (4) Pneumonia: Qualifiers: Laterality: bilateral Lung location: unspecified part of lung Pneumonia type: due to unspecified organism Qualified Code(s): J18.9 - Pneumonia, unspecified organism Code(s): J18.9 - Pneumonia, unspecified organism Status: Acute Assessment and Plan: ----- viral pneumonia suspected due to COVID-19. Please see plan of care above Subjective Date/time seen: 03/16/20 16:17 Interval history: Pt is a 65-year-old female here for COVID-19 pneumonia. Patient was seen today and is in good spirits and off o2. She is still coughing and having some right sided pain with cough but that is improving too. She is almost back to her baseline (she has COPD and always has some SOB). She denies fevers, chills, leg swelling, diarrhea, constipation and is eating and drinking well. She is worried about being around her son since he is on a chronic vent from [place] Exam Narrative: Exam Narrative: General: Obese patient resting comfortably in bed in no acute distress HEENT: Normocephalic, atraumatic, PERRL, Sclerae anicteric, oral mucosa moist. Neck: Supple Resp: CTA, not on o2 Heart: RRR with no murmurs Abd: Soft, non distended. No pain to palpation. Positive bowel sounds Skin: Warm and dry Extremities: No swelling, erythema or pain to palpation Neuro: Alert and Oriented x4 . CN 2-12 intact. No focal neurological deficits. Objective Data Vital Signs Vital Signs: Vital Signs - 24 hr 03/15/20 16:45 03/15/20 17:00 03/15/20 17:45 Temperature 97.9 F Pulse Rate 62 Respiratory Rate 16 Blood Pressure 129/81 Pulse Oximetry 94 94 93 03/15/20 17:46 03/15/20 22:00 03/16/20 00:00 Temperature 98.0 F 97.6 F Pulse Rate 66 61 Respiratory Rate 20 20 Blood Pressure 121/56 L 122/65 Pulse Oximetry 93 92 91 03/16/20 04:00 03/16/20 08:00 03/16/20 09:24 Temperature 97.7 F 97.9 F Pulse Rate 65 74 Respiratory Rate 20 20 Blood Pressure 147/64 H 164/72 H Pulse Oximetry 91 92 93 03/16/20 09:58 03/16/20 12:00 Temperature 98.1 F Pulse Rate 74 Respiratory Rate 20 Blood Pressure 129/53 L Pulse Oximetry 90 92 Intake/Output Intake/Output: Intake & Output 03/13/20 03/14/20 03/15/20 03/16/20 23:59 23:59 23:59 23:59 Intake Total 1160 2050 1930 594 Output Total 1000 1100 1500 Balance 160 950 430 594 Meds/Results Medications: Active Medications Generic Name Dose Route Start Last Admin Trade Name Freq PRN Reason Stop Dose Admin Acetaminophen 650 mg 03/11/20 21:13 03/15/20 20:39 Tylenol Tablet PO 650 mg Q4H PRN Administration Mild Pain (1-3) or Fever Albuterol 2 puff 03/15/20 20:00 03/16/20 12:35 Proventil Hfa INHALATION 2 puff QIDRT RENE Administration Alprazolam 0.5 mg 03/12/20 12:09 03/15/20 20:39 Xanax PO 0.5 mg DAILY PRN Administration Anxiety Atorvastatin Calcium 10 mg 03/12/20 21:00 03/15/20 20:40 Lipitor PO 10 mg HS RENE Administration Dexamethasone 6 mg 03/12/20 21:00 03/15/20 20:40 Dexamethasone Po PO 03/21/20 21:01 6 mg 2100 S
[2020-03-16] MEDS: REMDESIVIR 100 MG/NS 250 ML 100 MG/250 ML BAG 175 MG IVPB (17:20)
[2020-03-16] MEDS: DEXAMETHASONE 2 MG TABLET 6 MG PO (21:29)
[2020-03-16] MEDS: oxyCODONE/ACETAMINOPHEN 5-325 MG TABLET 1 TABLET PO (21:29)
[2020-03-16] MEDS: ATORVASTATIN 10 MG TABLET PO (21:29)
[2020-03-16] MEDS: SODIUM CHLORIDE NASAL GEL 14.1 GM 1 APPLIC NASAL (21:29)
[2020-03-16] MEDS: ALPRAZolam 0.5 MG TABLET PO (21:30)
[2020-03-17] VITALS: BP 101/55; PULSE 70; RESP 20; TEMP 36.6; O2SAT 91
[2020-03-17 04:00] VITALS: BP 116/54; PULSE 69; RESP 20; TEMP 36.6; O2SAT 94
[2020-03-17 08:00] VITALS: BP 121/76; PULSE 66; RESP 20; TEMP 36.6; O2SAT 93
[2020-03-17] MEDS: ALBUTEROL SULFATE (*SP) AEROSOL 1 PUFF 2 PUFF INHALATION ×2 (08:15→13:18)
[2020-03-17] MEDS: ENOXAPARIN 40 MG/0.4 ML SYRINGE SUB-Q (09:39)
[2020-03-17] MEDS: POTASSIUM CHLORIDE 10 MEQ TABLET.ER PO (09:39)
[2020-03-17] MEDS: OXYBUTYNIN CHLORIDE 5 MG TABLET PO ×2 (09:39→14:03)
[2020-03-17] MEDS: LOSARTAN POTASSIUM 50 MG TABLET PO (09:39)
[2020-03-17] MEDS: FUROSEMIDE 20 MG TABLET PO (09:40)
[2020-03-17] MEDS: DICLOFENAC SOD 75 MG TABLET.EC PO (09:40)
[2020-03-17] MEDS: FLUoxetine HCL 20 MG CAPSULE PO (09:40)
[2020-03-17] MEDS: guaiFENesin 12 HR 600 MG TABCR PO (09:40)
[2020-03-17] MEDS: ACETAMINOPHEN 325 MG TABLET 650 MG PO (09:43)
--- NOTE | 2020-03-17 11:04 | PM.DS ---
DS: Admitting Diagnosis Admitting Diagnosis Admitting Diagnosis: COVID-19 DS: Discharge Diagnosis Discharge Diagnosis (1) COVID-19: Code(s): U07.1 - COVID-19 Status: Acute Assessment and Plan: ----- Patient required up to 4 L of oxygen while hospitalized but was able to be transitioned off. She received Remdesivir and Decadron during her stay. The patient has a son with muscular dystrophy who was on a ventilator at home and would like to end quarantine possible. CDC guidelines recommend two negative tests to end quarantine early so she can help her son at home. CXR is unchanged but pt is clinically stable/improved. (2) Acute respiratory failure with hypoxia: Code(s): J96.01 - Acute respiratory failure with hypoxia Status: Acute Assessment and Plan: ----- Resolved. (3) HTN (hypertension), benign: Code(s): I10 - Essential (primary) hypertension Status: Acute Assessment and Plan: ----- last blood pressure 120/58. Will continue Lasix and losartan (4) Pneumonia: Qualifiers: Laterality: bilateral Lung location: unspecified part of lung Pneumonia type: due to unspecified organism Qualified Code(s): J18.9 - Pneumonia, unspecified organism Code(s): J18.9 - Pneumonia, unspecified organism Status: Acute Assessment and Plan: ----- viral pneumonia suspected due to COVID-19. Please see plan of care above DS: Summary Hospital Course Reason for hospitalization: COVID-19 Hospital Course: patient is a 65-year-old female who presented emergency room for shortness of breath and cough found to have COVID-19 pneumonia. She was admitted to the hospitalist service and was started on Remdesivir, Decadron, Lovenox and supplemental oxygen. The patient had slow improvement and was hospitalized for 6 days. During the 6 days, she was able to slowly be weaned off oxygen. the day of discharge the patient was feeling back to baseline and was stable for discharge. She is to follow-up with Dr. Topete. Please see above for further details. The patient was educated about the worrisome signs and symptoms come back to emergency room for as well as quarantine guidelines. Discharge in stable condition Status at Discharge Functional status at discharge: independent ambulation Overall status at discharge: patient is back to baseline Time Spent with Patient Time attestation: Total time spent providing and/or coordinating discharge services:38 min Time spent: Greater than 30 minutes Exam Narrative: Exam Narrative: General: Obese patient resting comfortably in bed in no acute distress HEENT: Normocephalic, atraumatic, PERRL, Sclerae anicteric, oral mucosa moist. Neck: Supple Resp: CTA, not on o2 Heart: RRR with no murmurs Abd: Soft, non distended. No pain to palpation. Positive bowel sounds Skin: Warm and dry Extremities: No swelling, erythema or pain to palpation Neuro: Alert and Oriented x4 . CN 2-12 intact. No focal neurological deficits. DS: Data Data Completed and Pending Labs on day of discharge: Preliminary micro results at discharge 03/11/20 21:27 Blood Culture - Preliminary Blood 03/11/20 21:26 Blood Culture - Preliminary Blood Discharge Plan Discharge Attending physician on discharge: Shine Meier Discharging Clinician: Simran Mcnulty Patient Disposition: Home, Self-Care Activity: as tolerated Diet: regular Discharge Instructions: -Continue isolating yourself and your family (wear a mask if you absolutely cannot isolate). According to the CDC recommendations, you should quarantine for at least 20 days since your symptoms first appeared (it's longer than 10 days because you were hospitalized). Once these days days are up AND you have no more symptoms AND you have not had a fever for 24 hours (without fever medication), you are able to discontinue your quarantine. you have b
[2020-03-17 12:00] VITALS: BP 120/58; PULSE 78; RESP 20; TEMP 36.8; O2SAT 92
[2020-03-18 18:19] LABS: SARS-CoV-2 RNA PCR Positive
== END 2020-03-17 14:02 | disposition home or self-care (01) | DRG 177 ==
LOC: ANHED 21:18 → ANH3MEDSUR 03-12 06:51
PROVIDERS: Admitting Provider Family Medicine; Emergency Provider Emergency Medicine; PCP Family Medicine Adolescent Medicine; Visit Provider Physician Assistant
DX: U07.1 COVID-19 (principal); J96.01 Acute respiratory failure with hypoxia; J12.89 Other viral pneumonia; Z68.43 Body mass index [BMI] 50.0-59.9, adult; E66.01 Morbid (severe) obesity due to excess calories; I10 Essential (primary) hypertension; Z87.891 Personal history of nicotine dependence
CPT/HCPCS: 36415; 71045; 80048; 80076; 82728; 83605; 83615; 83735; 83880; 84460; 84484; 85025; 85027; 85610; 85730; 86140; 87040; 87635; 93005; 94640; 99285; A9270; C9803; J0456; J0696; J1100; J1650; J2405; J8540; U0003

== ENCOUNTER → 2020-04-25 12:33 | Outpatient (CLI) | payer OTHER, SELFPAY ==
--- NOTE | ~2020-04-25 | DEXA_ITS ---
Bone Density Report Name: Alissa Hoffmann Age: 65 Sex: Female Ethnicity: White Date of : 1955 Indication: postmenopausal; screening for osteoporosis; height loss; asthma or emphysema; Referring Provider: Bishop Lopez Study: Bone densitometry was performed. Exam Date: April 25, 2020 Accession number: [id number] Bone Density: Region BMD T-score Z-score Classification AP Spine (L2, L3, L4) 1.165 0.8 2.8 Normal Femoral Neck (Left) 0.873 0.2 1.8 Normal Total Hip (Left) 1.115 1.4 2.8 Normal Femoral Neck (Right) 0.822 -0.2 1.4 Normal Total Hip (Right) 1.012 0.6 1.9 Normal Total Hip Mean 1.064 1.0 2.4 Normal World Health Organization criteria for BMD impression classify patients as: Normal (T-score at or above -1.0), Osteopenia (T-score between -1.0 and -2.5), or Osteoporosis (T-score at or below -2.5). 10-year Fracture Risk: FRAX not reported because: All T-scores for Spine Total, Hip Total, Femoral Neck at or above -1.0 Previous Exams: Region Exam Age BMD T-score BMD Change BMD Change Date g/cm2 vs Baseline vs Previous AP Spine(L2, L3, L4) 04/25/2020 65 1.165 0.8 -0.096* -0.113* 10/26/2017 62 1.277 1.8 0.016 0.024* 03/29/2012 57 1.253 1.6 -0.008 -0.008 05/27/2009 54 1.261 1.7 Total Hip(Left) 04/25/2020 65 1.115 1.4 0.052* -0.047* 10/26/2017 62 1.162 1.8 0.100* 0.019 03/29/2012 57 1.143 1.7 0.081* 0.081* 05/27/2009 54 1.063 1.0 Total Hip(Right) 04/25/2020 65 1.012 0.6 -0.045* 0.042* 10/26/2017 62 0.971 0.2 -0.087* -0.209* 03/29/2012 57 1.180 2.0 0.123* 0.123* 05/27/2009 54 1.057 0.9 *Denotes significance at 95% confidence level, LSC for AP Spine = 0.022 g/cm2, LSC for Total Hip = 0.027 g/cm2 Clinical Information Provided by Patient: Has used the following medications: Vitamin D Has the following medical conditions: Asthma or Emphysema Patient maximum height was 66 Menopause Age: 44 No regular weight bearing exercise Drinks caffeinated beverages Onset of menses at age 10 Number of children 1 Impression: The patient has normal bone mass. The BMD for the AP Spine(L2, L3, L4) decreased, changing by -0.113 since the last DXA exam. The BMD for the Total Hip(Left) decreased, changing by -0.047 since the last DX
== END ==
PROVIDERS: PCP Family Medicine Adolescent Medicine; Visit Provider Family Medicine Adolescent Medicine
DX: Z78.0 Asymptomatic menopausal state (principal)
CPT/HCPCS: 77080

== ENCOUNTER → 2020-12-16 11:03 | Outpatient (CLI) | payer OTHER, SELFPAY ==
--- NOTE | ~2020-12-16 | XR_ITS ---
EXAMINATION: XR chest 2V DATE: 12/16/2020 11:19 INDICATION: Shortness of breath. TECHNIQUE: Frontal and lateral views of the chest were obtained. COMPARISON: Chest single view 03/17/2020, chest CT 01/22/2020 FINDINGS: There is no pneumonia, pleural effusion, or pneumothorax. Cardiomegaly is noted. IMPRESSION: 1. Cardiomegaly. Reviewed, dictated and finalized at location B. IMPRESSION: 1. Cardiomegaly.
== END ==
PROVIDERS: Visit Provider Physician Assistant
DX: R06.02 Shortness of breath (principal); I51.7 Cardiomegaly
CPT/HCPCS: 71046

== ENCOUNTER 2021-12-16 12:37 | Outpatient (CLI) | payer OTHER, SELFPAY ==
--- NOTE | 2021-12-17 06:40 | WPDPFTINT ---
PFT Procedure Performed PFT Procedure Performed Spirometry with Pre/Post Bronchodilator Plethysmography (Lung Vol) Diffusing Cap (DLCO) Flow Vol Loop PFT Interpretation This is a pulmonary function test with pre and post-bronchodilator spirometry, plethysmography and diffusing capacity. The test was performed and results interpreted in accordance with the 2019 and 2005 ATS/ERS Task Force guidelines respectively using the Global Lung Function Initiative-2012 reference equations. Patient demonstrated good effort and cooperation. Reproducibility criteria were met. The quality of the pre bronchodilator spirometry maneuver was Grade A and post bronchodilator spirometry maneuver was Grade A. Findings: Spirometry: The contour the inspiratory and expiratory flow tracing are normal. The pre bronchodilator FVC is 2.10 L, 75% predicted. The pre bronchodilator FEV1 is 1.54 L, 70% predicted. The pre bronchodilator FEV1: FVC ratio is 73%. The post bronchodilator FVC is 2.11 L, representing 1% increase. The post bronchodilator FEV1 is 1.61 L, representing a 5% increase. The post bronchodilator FEV1: FVC ratio 76%. Plethysmography: The total lung capacity is 5.87 L, 120% predicted. The functional residual capacity is 3.00 L, 107% predicted. The residual volume is 2.98 L, 142% predicted. Diffusing capacity: The diffusing capacity unadjusted for hemoglobin and carboxyhemoglobin is 13.4, 66% predicted. The diffuse the diffusing capacity adjusted for alveolar volume is 4.71, 108% predicted. Impression: The spirometry is normal without evidence of an obstructive abnormality. The total lung capacity is normal without evidence of and restrictive abnormality. The FEV1 is mildly decreased without an obstructive or restrictive abnormality. This is an abnormal but nonspecific finding. The residual volume is increased consistent with air trapping. The diffusing capacity unadjusted for hemoglobin and carboxyhemoglobin is mildly decreased and normalizes when adjusted for alveolar volume. There are no prior studies for comparison
== END 2021-12-16 12:38 | disposition home or self-care (01) ==
PROVIDERS: PCP Family Medicine Adolescent Medicine; Visit Provider Physician Assistant
DX: R06.02 Shortness of breath (principal)
CPT/HCPCS: 94060; 94726; 94729

== ENCOUNTER → 2021-12-16 14:08 | Outpatient (CLI) | payer OTHER, SELFPAY ==
--- NOTE | ~2021-12-16 | XR_ITS ---
XR chest 2V DATE: 12/16/2021 14:51 INDICATION: Shortness of breath TECHNIQUE: 2 views COMPARISON: 12/16/2020 2 view chest FINDINGS: There is cardiomegaly. No pulmonary infiltrate or consolidation, pleural effusion or pulmonary vascular congestion or pneumo thorax is evident. There is dextroscoliosis and mild to moderate degenerative change of the thoracic spine. IMPRESSION: Cardiomegaly Reviewed, dictated and finalized at location B. IMPRESSION: Cardiomegaly
== END ==
PROVIDERS: PCP Family Medicine Adolescent Medicine; Visit Provider Physician Assistant
DX: R06.02 Shortness of breath (principal); I51.7 Cardiomegaly
CPT/HCPCS: 71046

== ENCOUNTER 2022-01-16 08:10 | Outpatient (CLI) | payer OTHER, SELFPAY ==
[2022-01-16 08:30] VITALS: PULSE 88; O2SAT 95
[2022-01-16 08:35] VITALS: PULSE 113; O2SAT 86
[2022-01-16 08:40] VITALS: PULSE 114; O2SAT 88
[2022-01-16 08:45] VITALS: PULSE 116; O2SAT 90
[2022-01-16 09:00] VITALS: PULSE 87; O2SAT 94
--- NOTE | 2022-01-16 09:12 | HOMEO2EVAL ---
Evaluation was performed at [facility] Home Oxygen Evaluation RC: Home Oxygen (O2) Evaluation Start: 01/16/22 09:09 Freq: Status: Active Protocol: RPE Activity Type Activity Date Activity User E-sign Co-sign Detail Recorded Client Recorded Date Recorded By Document 01/16/22 08:30 [email or web address] [email or web address] 01/16/22 09:12 DJO Document 01/16/22 08:35 [email or web address] 01/16/22 09:12 DJO Document 01/16/22 08:40 [email or web address] [email or web address] 01/16/22 09:12 DJO Document 01/16/22 08:45 [email or web address] [email or web address] 01/16/22 09:12 DJO Document 01/16/22 09:00 [email or web address] [email or web address] 01/16/22 09:12 DJO 01/16/22 01/16/22 01/16/22 08:30 08:35 08:40 Home O2 Evaluation Test Phase Resting Exercise Exercise Oxygen Delivery Room Air Room Air Nasal Cannula Oxygen Flow Rate (L/min) 1 Pulse Oximetry (90-100 %) 95 86 L 88 L Pulse Rate (60-100 beats/min) 88 113 H 114 H Activity Tolerance Ambulation Distance (feet) Ambulation Distance (meters) Treatment Charges O2 Evaluation - Outpatient 01/16/22 01/16/22 08:45 09:00 Home O2 Evaluation Test Phase Exercise Resting Oxygen Delivery Nasal Cannula Room Air Oxygen Flow Rate (L/min) 2 Pulse Oximetry (90-100 %) 90 94 Pulse Rate (60-100 beats/min) 116 H 87 Activity Tolerance Fair Ambulation Distance (feet) 500 Ambulation Distance (meters) 152.39 Treatment Charges
== END 2022-01-16 08:11 | disposition home or self-care (01) ==
PROVIDERS: PCP Family Medicine Adolescent Medicine; Visit Provider Physician Assistant
DX: R06.00 Dyspnea, unspecified (principal)
CPT/HCPCS: 94618

== ENCOUNTER 2024-01-11 15:25 | Emergency (ER) | payer OTHER, SELFPAY ==
--- NOTE | ~2024-01-11 | CT_ITS ---
EXAMINATION: CT brain wo con DATE: 01/11/2024 16:19 INDICATION: Memory loss. TECHNIQUE: Computed tomography (CT) of the head was performed without intravenous contrast. The mA wa s adjusted according to patient size. Iterative reconstruction technique was employed. The dose-lengt h product was 605.33 mGy-cm. COMPARISON: Head CT 01/14/2018 FINDINGS: There is no intracranial hemorrhage, acute infarction, or abnormal intracranial mass lesion . The ventricles are normal in size. There is mild mucosal thickening in the paranasal sinuses. There are likely changes of ocular lens replacement surgeries. The mastoid air cells are normal. IMPRESSION: 1. Normal brain. Reviewed, dictated and finalized at location A. IMPRESSION: 1. Normal brain.
--- NOTE | ~2024-01-11 | XR_ITS ---
EXAMINATION: XR chest 1V portable Exam Date/Time: 01/11/2024 15:40 CDT HISTORY: ams Comparison: 12/16/2021. RESULT: Lines, tubes, and devices: None. Lungs and pleura: Clear. Cardiomediastinal silhouette: Stable. Other: No acute osseous or upper abdominal finding. IMPRESSION: No acute cardiopulmonary process. Reviewed, dictated and finalized at location K.
--- NOTE | 2024-01-11 15:27 | ECG_ITS ---
[facility] [address] Test Date: 2024-01-11 Pat Name: Alissa Hoffmann Department: Room: Gender: F [employer]: : 1955 Requested By: Stefan Mejias Order Number: [id number] Yana MD: Katelynn Perez M.D. Measurements Intervals [place] Rate: 111 P: 46 WA: 128 QRS: -2 QRSD: 86 T: 37 QT: 310 QTc: 422 Interpretive Statements SINUS TACHYCARDIA POSSIBLE LEFT ATRIAL ENLARGEMENT [-0.1mV P WAVE IN V1/V2] LOW QRS VOLTAGE IN PRECORDIAL LEADS [QRS DEFLECTION < 1.0 mV IN CHEST LEADS] POSSIBLE ANTERIOR MYOCARDIAL INFARCTION , OF INDETERMINATE AGE [30 ms Q WAVE IN V3/V4, OR R < 0.2 mV IN V4] No previous ECG available for comparison Electronically Signed On 01-12-2024 13:49:27 CDT by Katelynn Perez M.D.
[2024-01-11 15:33] VITALS: BP 141/121; PULSE 130; RESP 20; TEMP 37.1; O2SAT 96
[2024-01-11 15:47] LABS: Basophils Absolute Auto 0.1 K/mm3 (0.0-0.1); Basophils Percent Auto 0.7 % (0.2-1.2); Eosinophils Absolute Auto 0.7 K/mm3 (0-0.3); Eosinophils Percent Auto 5.4 % (0-4.4); Hematocrit 49.5 % (37.0-47.0); Hemoglobin 16.3 g/dL (12.0-15.0); Immature Granulocyte Absolute 0.08 K/mm3 (0.00-0.031); Immature Granulocyte Percent A 0.6 % (0-0.5); Lymphocytes Absolute Auto 3.25 K/mm3 (0.9-3.2); Lymphocytes Percent Auto 23.5 % (18.3-44.2); Mean Corpuscular HGB Conc 32.9 g/dl (32-36); Mean Platelet Volume 11.2 fl (7.4-10.4); Monocytes Absolute Auto 1.1 K/mm3 (0.1-0.6); Monocytes Percent Auto 7.6 % (2.6-8.5); Neutrophils Absolute Auto 8.6 K/mm3 (1.3-6.7); Neutrophils Percent Auto 62.2 % (45.5-73.1); Platelet Count Result 314 k/mm3 (150-375); Red Blood Count 5.44 M/mm3 (4.2-5.4); White Blood Count 13.8 K/mm3 (4.5-10.0)
[2024-01-11 16:01] LABS: Alanine Aminotransferase 17 U/L (6-35); Albumin Level 4.7 g/dL (3.5-5.1); Alkaline Phosphatase 109 U/L (38-126); Anion Gap 9 mmol/L (4-12); Aspartate Amino Transferase 24 U/L (14-36); Bilirubin,Total 0.7 mg/dL (0.2-1.3); Blood Urea Nitrogen 16 mg/dL (7-17); Calcium 9.4 mg/dL (8.4-10.2); Carbon Dioxide 25 mmol/L (22-30); Chloride 108 mmol/L (98-107); Estimated CRCL calculation 83 ml/min; Estimated Glomerular Filt Rate > 60; Glucose 140 mg/dL (65-110); Potassium 3.9 mmol/L (3.4-5.0); Sodium 142 mmol/L (137-145)
[2024-01-11 16:33] LABS: Appearance Urine Cloudy (Clear); Bacteria Urine 4+ /hpf; Bilirubin Urine Negative (Negative); Blood Urine Negative (Negative); Color Urine Dark Yellow (Yellow); Glucose Urine UA Negative (Negative); Ketones Urine Trace mg/dL (Negative); Leukocyte Esterase Ur 1+ LEU/UL (Negative); Need Manual Microscopic Reviewed; Nitrate Urine Positive (Negative); Non Pathogenic Casts >20; Protein Urine Trace mg/dL (Negative); RBC Urine 0-2 /hpf (0-2); Specific Grav Ur 1.019 (1.001-1.035); Squamous Epithelial Cell Urine None Seen /hpf (Few); pH Urine 5.5 (5.0-9.0)
[2024-01-11 16:36] LABS: Add Urine Microscopic? YES
[2024-01-11] MEDS: LORazepam INJ (*CRX) 2 MG/ML VIAL 0.5 MG IV PUSH (17:47)
--- NOTE | 2024-01-11 18:13 | ED.GENADULT ---
HPI - General Adult General Chief complaint: Altered Mental Status <Stefan Mejias MD - Last Filed: 01/11/24 18:30> Stated complaint: ams <Stefan Mejias MD - Last Filed: 01/11/24 18:30> Time Seen by Provider: 01/11/24 15:30 <Stefan Mejias MD - Last Filed: 01/11/24 18:30> Source: patient <Stefan Mejias MD - Last Filed: 01/11/24 18:30> Mode of arrival: EMS <Stefan Mejias MD - Last Filed: 01/11/24 18:30> History of Present Illness HPI narrative: [age] with a history of hypertension, morbid obesity was brought in from home with a complaint of unable to remember the vein since this morning. Patient states that she call her knees and told her that she is unable to remember. Upon arrival patient states that she did not know her son a year ago .Her niece who is at the bed side states she lost her mother few months later she keeps thinking about them. <Stefan Mejias MD - Last Filed: 01/11/24 18:30> Onset (ago): day(s) (1) <Stefan Mejias MD - Last Filed: 01/11/24 18:30> Related Data Home medications: Home Medications Medication Instructions Recorded Confirmed cholecalciferol (vitamin D3) 125 125 mcg PO DAILY 01/22/20 11/23/23 mcg (5,000 unit) tablet (Vitamin D3) pantoprazole 40 mg tablet,delayed 40 mg PO QAM PRN 09/07/23 11/23/23 release <Stefan Mejias MD - Last Filed: 01/11/24 18:30> Allergies/adverse reactions: Allergies Allergy/AdvReac Type Severity Reaction Status Date / Time ROSE Inhibitors AdvReac Mild cough Verified 11/23/23 10:12 <Stefan Mejias MD - Last Filed: 01/11/24 18:30> Review of Systems Review of Systems: All systems reviewed & are unremarkable except as noted in HPI and below <MD Venus Gray Last Filed: 01/11/24 18:30> Constitutional: Constitutional: Reports no additional constitutional complaints <Stefan Mejias MD - Last Filed: 01/11/24 18:30> Eyes: Eyes: Reports no additional eye complaints <Stefan Mejias MD - Last Filed: 01/11/24 18:30> ENT: Reports system reviewed and no additional complaints, except as documented <Stefan Mejias MD - Last Filed: 01/11/24 18:30> Cardiovascular: Cardiovascular: Reports no additional cardiovascular complaints <Stefan Mejias MD - Last Filed: 01/11/24 18:30> Respiratory: Respiratory: Reports no additional respiratory complaints <Stefan Mejias MD - Last Filed: 01/11/24 18:30> Gastrointestinal: Gastrointestinal: Reports no additional gastrointestinal complaints <Stefan Mejias MD - Last Filed: 01/11/24 18:30> Genitourinary: Genitourinary: Reports no additional female genitourinary complaints <Stefan Mejias MD - Last Filed: 01/11/24 18:30> Neurologic: Reports system reviewed and no additional complaints, except as documented <Stefan Mejias MD - Last Filed: 01/11/24 18:30> Psychiatric: Psychiatric: Reports as per HPI <Stefan Mejias MD - Last Filed: 01/11/24 18:30> PMFSH Past Medical History Medical History: Medical History COVID-19 Dyspnea on exertion History of tobacco use HTN (hypertension), benign Morbid obesity Pneumonia <Stefan Mejias MD - Last Filed: 01/11/24 18:30> Surgical History Surgical History: Surgical History History of appendectomy History of History of tonsillectomy <Stefan Mejias MD - Last Filed: 01/11/24 18:30> Family History Family History: Family History Mother Diabetes mellitus Son Muscular dystrophy <Stefan Mejias MD - Last Filed: 01/11/24 18:30> Social History Social History: Social History Social History: patient quit smoking when she was 38 and has not smoked since. She does not drink alcohol, smoke marijuana or do other street drugs. She would lik
[2024-01-11 19:34] VITALS: BP 145/87; PULSE 107; RESP 15; O2SAT 96
[2024-01-11 19:58] LABS: Influenza A QL RT-PCR Negative (Negative); Influenza B QL RT-PCR Negative (Negative); RSV RNA, RT-PCR Negative (Negative); SARS-CoV-2 RNA PCR Negative (Negative)
[2024-01-11] MEDS: LORazepam (*CRX) 0.5 MG TABLET PO (20:21)
== END 2024-01-11 20:26 | disposition home or self-care (01) ==
PROVIDERS: Family Medicine; Emergency Provider Emergency Medicine; PCP Family Medicine Adolescent Medicine
DX: N39.0 Urinary tract infection, site not specified (principal); F41.9 Anxiety disorder, unspecified; Z20.822 Contact with and (suspected) exposure to COVID-19; I10 Essential (primary) hypertension; E66.01 Morbid (severe) obesity due to excess calories; Z68.43 Body mass index [BMI] 50.0-59.9, adult; Z86.16 Personal history of COVID-19; Z87.01 Personal history of pneumonia (recurrent); Z87.891 Personal history of nicotine dependence; Z79.899 Other long term (current) drug therapy; R94.31 Abnormal electrocardiogram [ECG] [EKG]; R00.0 Tachycardia, unspecified
CPT/HCPCS: 36415; 70450; 71045; 80053; 81001; 85025; 87077; 87086; 87088; 87186; 87637; 93005; 96365; 96375; 99284; A9270; J0696; J2060

== ENCOUNTER 2024-10-18 15:04 | Emergency (ER) | payer OTHER, SELFPAY ==
[2024-10-18 15:18] VITALS: BP 90/75; PULSE 80; RESP 16; TEMP 36.6; O2SAT 98
--- NOTE | 2024-10-18 15:20 | ED.SKABFB ---
HPI - Skin/Abscess/Foreign Bdy General Chief complaint: Skin/Abscess/Foreign Body Stated complaint: Bump On Back Time Seen by Provider: 10/18/24 15:21 Source: patient Mode of arrival: ambulatory Limitations: no limitations History of Present Illness HPI narrative: [age] year female presents with complaint cyst to her back. Thinks that it is been there for long period time, became painful yesterday. Patient states she had her sister look at it today who told her it was red. Patient concerned she may needed drained. afebrile. All systems reviewed and negative except as noted above. Related Data Home Medications ?Medication ?Instructions ?Recorded ?Confirmed ?Last Taken ?Type cholecalciferol (vitamin D3) 125 125 mcg PO DAILY 01/22/20 10/18/24 01/22/20 History mcg (5,000 unit) tablet (Vitamin D3) Allergies Allergy/AdvReac Type Severity Reaction Status Date / Time ROSE Inhibitors AdvReac Mild cough Verified 10/18/24 15:08 Review of Systems Review of Systems: CONSTITUTIONAL: Denies fever, chills, or sweats. EYES: Denies visual changes, redness, or discharge. ENT: Denies rhinorrhea, congestion, sore throat, or otalgia. CARDIOVASCULAR: Denies chest pain, palpitations, or edema. RESPIRATORY: Denies cough or dyspnea. GASTROINTESTINAL: Denies abdominal pain, nausea, vomiting, or diarrhea. GENITOURINARY: Denies dysuria or hematuria. SKIN: Denies rash or itching. reports abscess to upper back MUSCULOSKELETAL: Denies back pain, joint pain, or myalgia. NEUROLOGIC: Denies headache, numbness, or weakness. PSYCHIATRIC: Denies anxiety or depression. All other systems reviewed are negative, except as documented in HPI. [facility] Past Medical History Medical History COVID-19 Dyspnea on exertion History of tobacco use HTN (hypertension), benign Morbid obesity Pneumonia Transient global amnesia Surgical History Surgical History History of appendectomy History of History of tonsillectomy Family History Family History Mother Diabetes mellitus Son Muscular dystrophy Social History Social History Social History: patient quit smoking when she was 38 and has not smoked since. She does not drink alcohol, smoke marijuana or do other street drugs. She would like to be full code. Smoking packs per day: 2.5 Smoking cigarettes per day: 50.0 Years smoked: 20 Smoking pack-years: 50.00 Smoking status: Former smoker Tobacco type: cigarettes Second hand tobacco smoke exposure: No Alcohol intake: former Drinks per week: 1 Substance use: never Substance use type: does not use Do You Feel Safe in your Home?: Yes Lack of Transportation: No Lack of Food: Never True Current Housing: I Have Housing Concerned About Future Housing: No Difficulty Paying Gas/Electric Bills: Decline to Answer Difficulty Paying for Meds: Decline to Answer Currently Unemployed: No Education: High School Diploma/GED Difficulty w/ Childcare or Family Care: No Living arrangements: with family Occupation/Education: retired Gender identity (if verbalized by the patient): Female Sexual Orientation (if Verbalized by the Patient): Straight or Heterosexual Spiritual care concerns: No Agree to blood products: Yes Comments reviewed Exam Narrative: GENERAL: This is a well-nourished, well-developed patient, in no apparent distress. HEAD: normocephalic, atraumatic. EYES: PERRL. Sclera clear/white. Vision is grossly intact. EARS: External ears normal NOSE: External nose normal NECK: Neck supple, non-tender without lymphadenopathy, masses or thyromegaly. CARDIOVASCULAR: Regular rate and rhythm without murmurs, gallops, or rubs. RESPIRATORY: Clear to auscultation. Breath sounds equal bilaterally. No wheezes, rales, or rhonchi. SKIN: warm, Dry, intact with no suspicious lesions or rash, good texture and turgor. abscess approximately 4 cm diameter of erythema and 8 cm diameter of swelling. Fluctuance to center. NEURO: awake, alert, and oriented to person, place and time. There were no obvious focal neurologic abnormalities. EXTREMITIES: No joint tenderness, effusion, or edema noted. Course Course Level of Care: Express Care Visit Vital Signs Vital signs: Vital Signs Temperature 36.6 C 10/18/24 15:18 Pulse Rate 80 10/18/24 15:18 Respiratory Rate 16 10/18/24 15:18 Blood Pressure 90/75 L 10/18/24 15:18 Pulse Oximetry 98 10/18/24 15:18 Oxygen Delivery Room Air 10/18/24 15:18 Temperature 36.6 C 10/18/24 15:18 Pulse Rate 80 10/18/24 15:18 Respiratory Rate 16 10/18/24 15:18 Blood Pressure 90/75 L 10/18/24 15:18 Pulse Oximetry 98 10/18/24 15:18 Oxygen Delivery Room Air 10/18/24 15:18 Reviewed Procedures Abscess I/D back: Date of Incision: 10/18/24 Time of Incision: 15:45 Local Anesthetic: lidocaine 2% Amount of anesthesia used (mL): 5 Technique: incised with #11 blade Irrigation: Yes Packing used?: iodoform I&D Results: Pus and Blood MDM - Skin/Abscess/Foreign Bdy MDM Narrative Medical decision making narrative: I and D of abscess of back. Wound culture ordered. Patient tolerated well. Prescribed clindamycin. Please be advised this is a medical document. It is intended for [id number] communication. It is written in medical language and may contain unfamiliar abbreviations or verbiage. Medical documents are intended to carry relevant information, facts as evident, and the clinical opinion of the practitioner at the time of the encounter. This report may have been done utilizing a voice recognition system. Attempts have been made to correct errors. However, there may be uncorrected grammatical, spelling, and recognition errors present. The file time of this note does not necessarily represent the time of service. Differential Diagnosis Differential diagnosis: Likely abscess of skin or subcutaneous tissue Discharge Plan Discharge Clinical Impression: Abscess of back Patient Disposition: Home, Self-Care Condition: Stable Instructions: Antibiotic Form, Abscess Incision and Drainage (DC) Additional Instructions: take antibiotic as prescribed until gone. Take Tylenol every 6-8 hours as needed for pain. Remove packing in 24-48 hours. Follow-up with your doctor if symptoms are not improving. Patient Language: Belarusian Prescriptions: New clindamycin HCl 300 mg capsule 300 mg PO Q8H 10 Days Qty: 30 0RF No Action (DME) Aerochamber MV Spacer See Rx Instructions .ROUTE .MEDSUPPLY Qty: 1 0RF Rx Instructions: As directed ezetimibe 10 mg tablet 10 mg PO DAILY Qty: 90 3RF quetiapine 25 mg tablet 25 mg PO QHS Qty: 30 0RF cholecalciferol (vitamin D3) [Vitamin D3] 125 mcg (5,000 unit) Tablet 125 mcg PO DAILY meclizine 25 mg tablet 25 mg PO TID PRN (Reason: dizziness) Qty: 30 3RF alprazolam 0.5 mg tablet 0.5 mg PO BID PRN (Reason: Anxiety) Qty: 40 0RF furosemide 20 mg tablet See Rx Instructions .ROUTE .COMPLEX Qty: 135 2RF Dose Instruction: TAKE 1 TO 2 TABLETS BY MOUTH ONCE DAILY NEEDED FOR SWELLING Rx Instructions: TAKE 1 TO 2 TABLETS BY MOUTH ONCE DAILY NEEDED FOR SWELLING Trelegy Ellipta 100-62.5-25 mcg blister with device 1 inh inhalation DAILY Qty: 60 5RF duloxetine 60 mg capsule,delayed release(DR/EC) See Rx Instructions .ROUTE .COMPLEX Qty: 30 6RF Dose Instruction: TAKE 1 CAPSULE BY MOUTH IN THE MORNING. START AFTER 1 WEEK AT 30 MG Rx Instructions: TAKE 1 CAPSULE BY MOUTH IN THE MORNING. START AFTER 1 WEEK AT 30 MG pantoprazole 40 mg tablet,delayed release (DR/EC) 40 mg PO DAILY Qty: 90 2RF gabapentin 300 mg capsule See Rx Instructions .ROUTE .COMPLEX Qty: 30 5RF Dose Instruction: TAKE 1 CAPSULE BY MOUTH EVERY DAY AT BEDTIME Rx Instructions: TAKE 1 CAPSULE BY MOUTH EVERY DAY AT BEDTIME diclofenac sodium 75 mg tablet,delayed release (DR/EC) See Rx Instructions .ROUTE .COMPLEX Qty: 180 1RF Dose Instruction: Take 1 tablet by mouth twice daily Rx Instructions: Take 1 tablet by mouth twice daily albuterol sulfate 90 mcg/actuation HFA aerosol inhaler 2 inh inhalation Q4H PRN (Reason: shortness of breath or wheezing) Qty: 8.5 3RF losartan 50 mg tablet See Rx Instructions .ROUTE .COMPLEX Qty: 90 1RF Dose Instruction: Take 1 tablet by mouth once daily Rx Instructions: Take 1 tablet by mouth once daily oxybutynin chloride 5 mg tablet See Rx Instructions .ROUTE .COMPLEX Qty: 90 1RF Dose Instruction: TAKE 1 TABLET BY MOUTH THREE TIMES DAILY Rx Instructions: TAKE 1 TABLET BY MOUTH THREE TIMES DAILY potassium chloride 10 mEq tablet extended release See Rx Instructions .ROUTE .COMPLEX Qty: 90 0RF Dose Instruction: TAKE 1 TABLET BY MOUTH ONCE DAILY ONLY ON DAYS THAT FUROSEMIDE IS TAKEN Rx Instructions: TAKE 1 TABLET BY MOUTH ONCE DAILY ONLY ON DAYS THAT FUROSEMIDE IS TAKEN Wegovy 0.5 mg/0.5 mL pen injector 0.5 mg subcut WEEKLY Qty: 2 0RF Rx Instructions: administer weeks 5 through 8 of therapy Follow-up/Referrals: Bishop Lopez MD [Primary Care Provider] - Time of Disposition: 15:52
[2024-10-18 16:01] VITALS: BP 128/90
== END 2024-10-18 16:01 | disposition home or self-care (01) ==
PROVIDERS: Emergency Provider Nurse Practitioner Family; PCP Family Medicine Adolescent Medicine
DX: L02.212 Cutaneous abscess of back [any part, except buttock and flank] (principal); Z87.891 Personal history of nicotine dependence; I10 Essential (primary) hypertension; E66.01 Morbid (severe) obesity due to excess calories; Z68.43 Body mass index [BMI] 50.0-59.9, adult
CPT/HCPCS: 10061; 87070; 87075; 87205; 99213; G0463; J2003